=== PATIENT | female | born 1955 | race Caucasian/White ===

== ENCOUNTER 2023-07-28 15:41 | Emergency (ER) | payer MEDICARE, OTHER ==
[2023-07-28] MEDS ORDERED: LIDOCAINE 5% PATCH TOPICAL STA (19:11)
[2023-07-28] MEDS ORDERED: HYDROmorphone 1 MG/ML 1 ML SYRINGE IM STA (19:11)
--- NOTE | 2023-07-28 19:13 | ED ---
Back Pain HPI - General Chief Complaint: Back Pain/Injury Stated Complaint: left hip/leg pain Time Seen by Provider: 07/28/23 18:43 Source: patient, RN notes reviewed, old records reviewed Limitations: no limitations - History of Present Illness Initial Comments: This is a 67-year-old female presented with chronic back pain she has known history of lung back pain with prior rhizotomy which is help with the back pain. Patient did just recently moved to the area and his been had a difficult time with pain management and treating her pain. MD Complaint: back pain -: month(s) Similar Symptoms Previously: Yes Place: home Radiation: none Severity: severe Severity scale (1-10): 8 Quality: sharp Consistency: constant Improves With: none Worsens With: none Associated Symptoms: denies other symptoms Treatments Prior to Arrival: other (0) - Related Data Allergies Allergy/AdvReac Type Severity Reaction Status Date / Time cefaclor [From Ceclor] Allergy Unknown Verified 07/28/23 15:55 Sulfa (Sulfonamide Allergy Unknown Verified 07/28/23 15:55 Antibiotics) Review of Systems ROS Statement: Those systems with pertinent positive or pertinent negative responses have been documented in the HPI. ROS Other: All systems not noted in ROS Statement are negative. Past Medical History Past Medical History: Hyperlipidemia, Hypertension History of Any Multi-Drug Resistant Organisms: None Reported Past Surgical History: Breast Surgery, Coronary Bypass/CABG, Hysterectomy Past Psychological History: No Psychological Hx Reported Smoking Status: Never smoker Past Alcohol Use History: None Reported Past Drug Use History: None Reported General Exam - General Exam Comments Initial Comments: No focal neurological deficits Limitations: no limitations General appearance: alert, in no apparent distress Head exam: Present: atraumatic, normocephalic, normal inspection Eye exam: Present: normal appearance, PERRL, EOMI. Absent: scleral icterus, conjunctival injection, periorbital swelling ENT exam: Present: normal exam, mucous membranes moist Neck exam: Present: normal inspection. Absent: tenderness, meningismus, lymphadenopathy Respiratory exam: Present: normal lung sounds bilaterally. Absent: respiratory distress, wheezes, rales, rhonchi, stridor Cardiovascular Exam: Present: regular rate, normal rhythm, normal heart sounds. Absent: systolic murmur, diastolic murmur, rubs, gallop, clicks GI/Abdominal exam: Present: soft, normal bowel sounds. Absent: distended, tenderness, guarding, rebound, rigid Extremities exam: Present: normal inspection, full ROM, normal capillary refill. Absent: tenderness, pedal edema, joint swelling, calf tenderness Back exam: Present: normal inspection Neurological exam: Present: alert, oriented X3, CN II-XII intact Psychiatric exam: Present: normal affect, normal mood Skin exam: Present: warm, dry, intact, normal color. Absent: rash Course Vital Signs 07/28/23 07/28/23 15:51 20:03 Temperature 98 F 98.9 F Pulse Rate 64 68 Respiratory 16 18 Rate Blood Pressure 140/84 135/83 O2 Sat by Pulse 96 99 Oximetry - Reevaluation(s) Reevaluation #1: 07/28/23 19:12 Medical records reviewed Reevaluation #2: 07/28/23 19:12 Patient symptoms improved Reevaluation #3: 07/28/23 19:12 Patient informed results questions answered Reevaluation #4: 07/28/23 19:12 Was pt. sent in by a medical professional or institution (Dr. PA, MUMPS DEVELOPER, urgent care, hospital, or fpc...) When possible be specific @ -no Did you speak to anyone other than the patient for history (EMS, parent, family, police, friend...)? What history was obtained from this source @ -no Did you review nursing and triage notes (agree or disagree)? Why? @ -agree Are old charts reviewed (outside hosp., previous admission, EMS record, old EKG, old radiological studies, urgent care reports/EKG's, fpc records)? Report findings @ -yes Differential Diagnosis (chest pain, altered mental status, abdominal pain women, abdominal pain men, vaginal bleeding, weakness, fever, dyspnea, syncope, headache, dizziness, GI bleed, back pain, seizure, CVA, palpatations, mental health, musculoskeletal)? @ -prior EKG interpreted by me (3pts min.). @ -no X-rays interpreted by me (1pt min.). @ -no CT interpreted by me (1pt min.). @ -no U/S interpreted by me (1pt. min.). @ -no What testing was considered but not performed or refused? (CT, X-rays, U/S, labs)? Why? @ -none What meds were considered but not given or refused? Why? @ -none Did you discuss the management of the patient with other professionals (professionals i.e. , PA, MUMPS DEVELOPER, lab, RT, psych nurse, social work case manager, puppet engineer, teacher, credit officer, case checker)? Give summary @ -no Was smoking cessation discussed for >3mins.? @ -no Was critical care preformed (if so, how long)? @ -no Were there social determinants of health that impacted care today? How? (Homelessness, low income, unemployed, alcoholism, drug addiction, transportation, low edu. Level, literacy, decrease access to med. care, senior care, rehab)? @ -none Was there de-escalation of care discussed even if they declined (Discuss DNR or withdrawal of care, Hospice)? DNR status @ -no What co-morbidities impacted this encounter? (DM, HTN, Smoking, COPD, CAD, Cancer, CVA, ARF, Chemo, Hep., AIDS, mental health diagnosis, sleep apnea, morbid obesity)? @ -none Was patient admitted / discharged? Hospital course, mention meds given and route, prescriptions, significant lab abnormalities, going to OR and other pertinent info. @ - 67 female to the emergency department for evaluation of acute on chronic back pain. Patient has pain control here in the ER now requiring anything also she has follow-up for surgery on her back and is able anyway with no neurological complaints. Patient can be discharged home Discharge Undiagnosed new problem with uncertain prognosis? @ -no Drug Therapy requiring intensive monitoring for toxicity (Heparin, Nitro, Insulin, Cardizem)? @ -no Were any procedures done? @ -no Diagnosis/symptom? @ -Chronic back pain Acute, or Chronic, or Acute on Chronic? @ -Acute Uncomplicated (without systemic symptoms) or Complicated (systemic symptoms)? @ -Complicated Side effects of treatment? @ -no Exacerbation, Progression, or Severe Exacerbation? @ -exacerbation Poses a threat to life or bodily function? How? (Chest pain, [place], NH, pneumonia, PE, COPD, DKA, ARF, appy, cholecystitis, CVA, Diverticulitis, Homicidal, Suicidal, threat to staff... and all critical care pts) @ -yes Reevaluation #5: 07/28/23 19:13 Differential Back Pain: Strain, zoster, cauda equina syndrome, epidural abscess, vertebral osteomyelitis, discitis, fracture, subluxation, disc herniation, DJD, spinal stenosis, dissection, AAA, pancreatitis, peptic ulcer disease, pyelonephritis, kidney stone, this is not meant to be an all-inclusive list. Medical Decision Making - Medical Decision Making 67 female to the emergency department for evaluation of acute on chronic back pain. Patient has pain control here in the ER now requiring anything also she has follow-up for surgery on her back and is able anyway with no neurological complaints. Patient can be discharged home Disposition Clinical Impression: Lumbar radiculopathy, Mid back pain, Mechanical back pain, Chronic back pain Disposition: HOME SELF-CARE Condition: Good Instructions (If sedation given, give patient instructions): Acute Low Back Pain (ED) Is patient prescribed a controlled substance at d/c from ED?: No Referrals: Erwin Rowland MD [Primary Care Provider] - 1-2 days Time of Disposition: 19:15
[2023-07-28 20:06] VITALS: BP 135/83; PULSE 68; RESP 18; TEMP 98.9
== END 2023-07-28 20:19 | disposition home or self-care (01) ==
LOC: EC 15:41
DX: G89.29 Other chronic pain (principal); M54.16 Radiculopathy, lumbar region; I10 Essential (primary) hypertension; Z88.2 Allergy status to sulfonamides; Z88.8 Allergy status to other drugs, medicaments and biological substances; Z95.1 Presence of aortocoronary bypass graft
CPT/HCPCS: 99283; 96372; J1170

== ENCOUNTER → 2023-08-14 | Outpatient (CLI) | payer MEDICARE, OTHER ==
[2023-08-14 14:02] VITALS: BP 149/86; PULSE 101; RESP 15; TEMP 98.5
--- NOTE | 2023-08-14 14:43 | P.PAINPG ---
PQRS Measure Charge Sheet Comment: HISTORY OF PRESENT ILLNESS: A 67 yr old female as a referral from Dr Erwin Rowland presents today w severe and chronic LBP x 3 mo secondary to DDD, spondylosis and facet arthropathy without myelopathy for evaluation. Pt brought in documentation from [facility] where she had a L RFA of the L3-L4, L4-L5, L5-S1 in Aug 2021 where she experienced 90% pain relief x 1.5 yrs s/p procedure. Pt states pain level is provoked at 8 /10 in intensity, constant, localized in the L lower lumbar spine, predominantly axial, stabbing in character w occasional shooting pain towards the L groin and LLE. Pain is provoked by standing/ walking for periods of 15 min or more. Pain is alleviated by L RFA L2-L5, medications ([place] 10/325mg TID, MS ER 30mg BID), topical, PT x 4 wks in 2021, physician guided home exercises 3-4 times weekly x past 11 mo til present, use of a cane for ambulatory assistance, repositioning and rest. Oswestry axial pain score at 32. PMH: OA, Hyperlipidemia, HTN PSH: Breast Surgery, Coronary Bypass/CABG, Hysterectomy, L RFA L2-L5 (Aug 2021) SH: Negative x3 FH: Non contributory All: See list Meds: See list REVIEW OF ORGAN SYSTEMS: CONSTITUTIONAL: No fevers or chills. No recent weight loss. NEUROLOGICAL: + numbness and tingling along the distal ex tremities. No seizure disorders or headaches. MUSCULOSKELETAL: + pain PSYCHIATRIC: Denies current depression or suicidal thoughts. Physical Examinations : Constitutional : Cooperative , not in acute distress . Neurologic : Cranial nerve II to XII intact. No focal neurological deficits. Psychiatric : alert & oriented x 3. Matching mood & appropriate affect. Judgment & insight intact. Musculoskeletal : Cervical Spine Motor strength in the deltoid and biceps: Normal right side. Normal Left side Motor strength biceps and the wrist extensors: Normal right side . Normal left side Motor strength in the triceps muscle: Normal right side. Normal left side Deep tendon reflexes: Normal at the biceps. Normal at Brachioradialis. Normal at triceps Vertebral body tenderness to deep palpation over Cervical facet loading test: positive bilaterally Spurling test: positive bilaterally Neck distraction test: positive bilaterally Phillip sign: positive bilaterally Lumbar spine Motor strength lower extremities ,thigh and legs 5/5 Right side , 5/5 Left side Deep tendon reflexes : Normal Knee Jerk. Normal Ankle Jerk Vertebral body tenderness over Jimneez Test positive Lumbar facet Loading Test: positive Right / positive Left over L4-L5, L5-S1 Range of motion of the lumbar spine Flexion 30 degrees, extension 10 degrees Straight Leg Raise test: Left/ Right positive at degree Sang test: positive right / positive left. Severe tenderness over the Sacroiliac joint on the Right / Left sides Gaenslen test: positive bilaterally Seated flexion test: positive james aterally. Sacral spine : Severe tenderness over the Sacroiliac joint: right side / left side Range of motion: Flexion of the lumbar spine <60 degrees Range of motion: Extension of the lumbar spine <20 degrees Gaenslen's Test positive Sang test: positive right side / left side Thigh Thrust Test Sacral Thrust Test Imaging: None on file Assessment/ Plan : Lumbar DDD Recommendation of x ray lumbar spine M51.36. RTC in 1-2 wks for a re evaluation. All questions answered. I have spent greater than 30 minutes on patient care today. Dr Gonzales was available by phone for the evaluation of this patient. The time was used to review the medical records including relevant urine studies and Prescription history (MAPs), review of the available imaging, evaluation and examination of the patient, coordination of care with the medical staff and if applicable referring physicians, as well as creation of the medical record - Pain Location Bilateral Lower Back Non-Pharmacological Interventions: Heat, Inactivity, Position/Reposition, Sitting Pharmacological Interventions: Epidural, Scheduled Medication Controlled Substance Measures - Controlled Substance Measures Is patient prescribed a controlled substance at discharge?: No
== END ==
LOC: PNWHC3 13:08
PROVIDERS: ATTEND Specialist
DX: M51.37 Other intervertebral disc degeneration, lumbosacral region (principal); M79.7 Fibromyalgia; J45.40 Moderate persistent asthma, uncomplicated; I10 Essential (primary) hypertension; E78.1 Pure hyperglyceridemia; I25.10 Atherosclerotic heart disease of native coronary artery without angina pectoris; M19.90 Unspecified osteoarthritis, unspecified site; E78.5 Hyperlipidemia, unspecified; Z88.8 Allergy status to other drugs, medicaments and biological substances; Z88.2 Allergy status to sulfonamides
CPT/HCPCS: 99211

== ENCOUNTER → 2023-08-14 | Outpatient (CLI) | payer MEDICARE, OTHER ==
--- NOTE | 2023-08-14 15:24 | XR ---
EXAMINATION TYPE: XR lumbar spine 2 or 3V DATE OF EXAM: 08/14/2023 CLINICAL HISTORY: pain TECHNIQUE: Three views of the lumbar spine are submitted. COMPARISON: None. FINDINGS: There are 5 lumbar type vertebral bodies identified. The lumbar spine shows satisfactory alignment w ithout evidence of acute fracture or dislocation. Vertebral body heights are within normal limits. Degenerative disc space narrowing. Grade 1 anterolisthesis L4 and L5 measuring 4 mm. The overlying s oft tissue appears unremarkable. IMPRESSION: No acute fracture or dislocation is seen in the lumbar spine. ICD 10 NO FRACTURE, INITIAL EVALUATION
== END | disposition home or self-care (01) ==
LOC: RADXRMAIN 14:14
PROVIDERS: ATTEND Physician Assistant Medical
DX: M51.36 Other intervertebral disc degeneration, lumbar region (principal)
CPT/HCPCS: 72100

== ENCOUNTER → 2023-08-22 | Outpatient (CLI) | payer MEDICARE, OTHER ==
--- NOTE | 2023-08-27 09:39 | MR ---
EXAMINATION TYPE: MR lumbar spine wo con DATE OF EXAM: 08/22/2023 COMPARISON: HISTORY: Low back pain into left side x4 months TECHNIQUE: Multiplanar, multisequence images of the lumbar spine were acquired without IV contrast. L1-L2: Normal disc appearance without desiccation. No herniation, protrusion or disc bulging. No ca nal stenosis is present. Foramina are patent bilaterally. L2-L3: Normal disc appearance without desiccation. No herniation, protrusion or disc bulging. No ca nal stenosis is present. Foramina are patent bilaterally. Grade 1 anterolisthesis L2 on L3 measuring 2 mm. Facet joint arthropathy. L3-L4: Mild disc desiccation. No significant disc bulge or herniation. No central stenosis. Foramina are patent bilaterally. L4-L5: Grade 1 anterolisthesis L4 and L5 measuring 6 mm. Posterior disc bulge. Left lateral recess st enosis and left foraminal encroachment. No central stenosis appreciated or disc herniation. L5-S1: Normal disc appearance without desiccation. No herniation, protrusion or disc bulging. No ca nal stenosis is present. Foramina are patent bilaterally. Lumbar segments are intact. No paraspinal masses are identified. Conus medullaris has a normal appe arance. IMPRESSION: 1. Grade 1 anterolisthesis L4-5 and L2-3 as discussed. 2. At L4-5 there is left lateral recess stenosis and left foraminal encroachment.
== END | disposition home or self-care (01) ==
LOC: RADMRIMAIN 16:58
PROVIDERS: ATTEND Specialist
DX: M51.36 Other intervertebral disc degeneration, lumbar region (principal); M43.16 Spondylolisthesis, lumbar region; M48.061 Spinal stenosis, lumbar region without neurogenic claudication
CPT/HCPCS: 72148

== ENCOUNTER → 2023-09-02 | Outpatient (CLI) | payer MEDICARE, OTHER ==
--- NOTE | 2023-09-02 14:19 | P.PAINPG ---
PQRS Measure Charge Sheet Comment: HISTORY OF PRESENT ILLNESS: A 67 yr old female presents today w severe and chronic LBP x 5 mo secondary to DDD, spondylosis and facet arthropathy without myelopathy for evaluation. Pt has documentation from [facility] where she had a L RFA of the L3-L4, L4-L5, L5-S1 in Aug 2021 where she experienced 90% pain relief x 1.5 yrs s/p procedure. Pt states pain level is provoked at 7-8 /10 in intensity, constant, localized in the L lower lumbar spine, predominantly axial, stabbing in character w occasional shooting pain towards the L groin and LLE. Pain is provoked by standing/ walking for periods of 15 min or more. Pain is alleviated by L RFA L2-L5, medications, topical, PT x 4 wks in 2021, physician guided home exercises 3-4 times weekly x past yr til present, use of a cane for ambulatory assistance, repositioning and rest. Oswestry axial pain score at 32. Interventional procedures include L RFA L2-L5 (Aug 2021) Medications include [place] 10/325mg #90, MS ER 30mg #60 REVIEW OF ORGAN SYSTEMS: CONSTITUTIONAL: No fevers or chills. No recent weight loss. NEUROLOGICAL: + numbness and tingling along the distal extremities. No seizure disorders or headaches. MUSCULOSKELETAL: + pain PSYCHIATRIC: Denies current depression or suicidal thoughts. Physical Examinations : Constitutional : Cooperative , not in acute distress . Neurologic : Cranial nerve II to XII intact. No focal neurological deficits. Psychiatric : alert & oriented x 3. Matching mood & appropriate affect. Judgment & insight intact. Musculoskeletal : Cervical Spine Motor strength in the deltoid and biceps: Normal right side. Normal Left side Motor strength biceps and the wrist extensors: Normal right side . Normal left side Motor strength in the triceps muscle: Normal right side. Normal left side Deep tendon reflexes: Normal at the biceps. Normal at Brachioradialis. Normal at triceps Vertebral body tenderness to deep palpation over Cervical facet loading test: positive bilaterally Spurling test: positive bilaterally Neck distraction test: positive bilaterally Phillip sign: positive bilaterally Lumbar spine Motor strength lower extremities ,thigh and legs 5/5 Right side , 5/5 Left side Deep tendon reflexes : Normal Knee Jerk. Normal Ankle Jerk Vertebral body tenderness over Jimenez Test positive Lumbar facet Loading Test: positive Right / positive Left over L4-L5, L5-S1 Range of motion of the lumbar spine Flexion 30 degrees, extension 10 degrees Straight Leg Raise test: Left/ Right positive at degree Sang test: positive right / positive left. Severe tenderness over the Sacroiliac joint on the Right / Left sides Gaenslen test: positive bilaterally Seated flexion test: positive bilaterally. Sacral spine : Severe tenderness over the Sacroiliac joint: right side / left side Range of motion: Flexion of the lumbar spine <60 degrees Range of motion: Extension of the lumbar spine <20 degrees Gaenslen's Test positive Sang test: positive right side / left side Thigh Thrust Test Sacral Thrust Test Imaging: MRI noncontrast of the lumbar spine from 08/22/23 reviewed Assessment/ Plan : Lumbar DDD Recommendation of L RFA L3-L5. Pt exhibited substantial pain relief w prior RFA of the lumbar spine from Aug 2021. Awaiting medical clearance from from Dr Hobbs, Photographic Restorer, for Xarelto. All questions answered. I have spent greater than 30 minutes on patient care today. Dr Gonzales was available by phone for the evaluation of this patient. The time was used to review the medical records including relevant urine studies and Prescription history (MAPs), review of the available imaging, evaluation and examination of the patient, coordination of care with the medical staff and if applicable refer ring physicians, as well as creation of the medical record PQRS Narrative: Hx Alcohol Use (MH) No Home Medications: Ambulatory Orders methocarbamoL [Robaxin-750] 1,500 mg PO TID PRN #30 tab 07/24/23 predniSONE 50 mg PO DAILY 5 Days #5 tab 07/24/23 Controlled Substance Measures - Controlled Substance Measures Is patient prescribed a controlled substance at discharge?: No
[2023-09-02 14:39] VITALS: BP 179/99; PULSE 78; RESP 15; TEMP 98.5
== END ==
LOC: PNWHC3 13:34
PROVIDERS: ATTEND Specialist
DX: M51.36 Other intervertebral disc degeneration, lumbar region (principal); Z88.2 Allergy status to sulfonamides; Z88.1 Allergy status to other antibiotic agents; Z91.048 Other nonmedicinal substance allergy status
CPT/HCPCS: 99211

== ENCOUNTER 2023-09-12 11:48 | Day surgery (SDC) | payer MEDICARE, OTHER ==
[2023-09-12] MEDS ORDERED: LIDOCAINE 1% (10MG/ML) FOR IV START INTRADERMA PRN (12:04)
[2023-09-12] MEDS ORDERED: LACTATED RINGERS 1,000 ML IV SCH ×2 (12:04)
[2023-09-12] MEDS ORDERED: LIDOCAINE 1% (10MG/ML) FOR IV START INTRADERMA ONE (12:38)
[2023-09-12 12:45] VITALS: RESP 16; TEMP 97.3
[2023-09-12] MEDS ORDERED: fentaNYL (PF) 50 MCG/ML 2 ML AMP ONE (13:17)
[2023-09-12] MEDS ORDERED: MIDAZOLAM 2 MG/2 ML VIAL ONE (13:17)
[2023-09-12] MEDS ORDERED: ROPIVACAINE 5MG/ML 20ML VIAL ONE (13:21)
[2023-09-12] MEDS ORDERED: LACTATED RINGERS 1,000 ML IV ONE (13:47)
--- NOTE | 2023-09-12 13:48 | P.PCN ---
Description of Procedure: Preprocedure diagnosis. 1. Lumbar spondylosis with facet joint arthropathy without myelopathy. 2. Lumbar degenerative disc disease. Procedure diagnosis. 1. Lumbar spondylosis with facet joint arthropathy without myelopathy. Space 2. Lumbar degenerative disc disease. Procedure.left radiofrequency thermocoagulation L3, L4 and L5 medial branch, with fluoroscopic guidance (fluoroscopy images are available in the radiology department) (to Denervate the facet joint at left L4 5 and L5-S1 levels) Anesthesia. Monitored anesthesia care as per anesthesia department, . EBL minimal. Procedure indication. The patient with low back pain secondary to lumbar facet arthropathy who he had more than 50% relief of her pain with previous diagnostic lumbar medial branch block with local anesthetics. Procedure description/technique. The patient was seen and identified in the preoperative area. Risks: Benefits, complications, including but not limited to risk of infection, bleeding, ALLERGIC reaction to the medications and no complete pain relief and alternatives were discussed with the patient, the patient admitted to proceed with the procedure and signed the consent. IV was started, vital signs remained stable throughout the procedure. Patient was taken to the OR and timeout was completed. The patient was placed in prone position on the procedure table. The lumbar area was prepped and draped in the usual sterile fashion. Vital signs were closely monitored during the procedure. IV sedation was used it during the procedure to decrease patient's anxiety. Using AP and then oblique fluoroscopy, the "eye of the [place] dog" corresponding to the connection between the superior articular process and transverse process of left L4 and L5 and junction of superior articular process with the left ala of the sacrum was identified, marked and localized with 1% lidocaine. Space subsequently, a 18-gauge 100 mm radiofrequency cannula with a 10 mm active tip was advanced and guided by fluoroscopy to each of the" eyes of the [place] dog" at left L4, L5 and ala of the sacrum. Each site then underwent sensory testing with 50 Hz and 0-1 V and motor testing at 2.5 Hz and 0-3 V with local stimulation but no radicular symptoms down the leg. Thereafter each sites underwent radiofrequency thermocoagulation at 80C for 90 seconds after injecting 1 mL of preservative-free 0.5% ropivacaine. Repeat radiofrequency ablation was done at each points after rotating the needle 180 with same setting. RF needles were taken out. At the end of the procedure the skin was cleansed and Band-Aids were applied. Disposition patient tolerated the procedure well. No complication. She was placed in supine position and transferred to the recovery area in stable condition for observation and was discharged home from recovery room after meeting discharge criteria. Discharge instructions given to the patient by the staff. The patient were examined prior to discharge the patient will schedule a follow-up in the clinic in 2-4 weeks.
--- NOTE | 2023-09-12 14:10 | FL ---
EXAMINATION TYPE: FL guided pain mgmt statistic Intraoperative/procedural fluoroscopic services were provided. Total fluoroscopy time is 33.8 seconds with a total of 3 submitted images to PACS. Please s ee the operative/procedural note for further details. DAP: [id number] [id number]
[2023-09-12 14:47] VITALS: BP 152/64; PULSE 74
== END 2023-09-12 14:20 | disposition home or self-care (01) ==
LOC: ORPAIN 11:48
PROVIDERS: ATTEND Pain Medicine Interventional Pain Medicine
DX: M51.36 Other intervertebral disc degeneration, lumbar region (principal); M47.816 Spondylosis without myelopathy or radiculopathy, lumbar region; I25.10 Atherosclerotic heart disease of native coronary artery without angina pectoris; I10 Essential (primary) hypertension; I48.91 Unspecified atrial fibrillation; E78.5 Hyperlipidemia, unspecified; Z86.711 Personal history of pulmonary embolism; Z79.01 Long term (current) use of anticoagulants; Z95.1 Presence of aortocoronary bypass graft; Z88.2 Allergy status to sulfonamides; Z88.1 Allergy status to other antibiotic agents
CPT/HCPCS: 64635; 64636; J2250; J3010; J2795

== ENCOUNTER → 2023-10-07 | Outpatient (CLI) | payer MEDICARE, OTHER ==
--- NOTE | 2023-10-07 13:00 | P.PAINPG ---
PQRS Measure Charge Sheet Comment: HISTORY OF PRESENT ILLNESS: A 68 yr old female presents today w severe and chronic LBP x 5 mo secondary to DDD, spondylosis and facet arthropathy without myelopathy for evaluation s/p L RFA L3-L5. Pt states she experienced 70 % pain relief s/p procedure. Pt states pain level is provoked at 9 /10 in intensity, constant, localized in the L tailbone, predominantly axial, stabbing in character w occasional shooting pain towards the L groin. Pain is provoked by standing/ walking for periods of 15 min or more. Pain is alleviated by L RFA L2-L5, medications, topical, PT x 4 wks in 2021, physician guided home exercises 3-4 times weekly x past yr til present, use of a cane for ambulatory assistance, repositioning and rest. Oswestry axial pain score at 31. Interventional procedures include L RFA L2-L5 (Aug 2021), L RFA L3-L5 (Aug 2023) Medications include Jefferson 10/325mg #90, MS ER 30mg #60 REVIEW OF ORGAN SYSTEMS: CONSTITUTIONAL: No fevers or chills. No recent weight loss. NEUROLOGICAL: + numbness and tingling along the distal extremities. No seizure disorders or headaches. MUSCULOSKELETAL: + pain PSYCHIATRIC: Denies current depression or suicidal thoughts. Physical Examinations : Constitutional : Cooperative , not in acute distress . Neurologic : Cranial nerve II to XII intact. No focal neurological deficits. Psychiatric : alert & oriented x 3. Matching mood & appropriate affect. Judgment & insight intact. Musculoskeletal : Cervical Spine Motor strength in the deltoid and biceps: Normal right side. Normal Left side Motor strength biceps and the wrist extensors: Normal right side . Normal left side Motor strength in the triceps muscle: Normal right side. Normal left side Deep tendon reflexes: Normal at the biceps. Normal at Brachioradialis. Normal at triceps Vertebral body tenderness to deep palpation over Cervical facet loading test: positive bilaterally Spurling test: positive bilaterally Neck distraction test: positive bilaterally Phillip sign: positive bilaterally Lumbar spine Motor strength lower extremities ,thigh and legs 5/5 Right side , 5/5 Left side Deep tendon reflexes : Normal Knee Jerk. Normal Ankle Jerk Vertebral body tenderness over Jimenez Test positive Lumbar facet Loading Test: positive Right / positive Left over L5-S1 Range of motion of the lumbar spine Flexion 30 degrees, extension 10 degrees Straight Leg Raise test: Left/ Right positive at degree Sang test: positive right / positive left. Severe tenderness over the Sacroiliac joint on the Right / Left sides Gaenslen test: positive bilaterally Seated flexion test: positive bilaterally. Sacral spine : Severe tenderness over the Sacroiliac joint: right side / left side Range of motion: Flexion of the lumbar spine <60 degrees Range of motion: Extension of the lumbar spine <20 degrees Gaenslen's Test positive Sang test: positive right side / left side Thigh Thrust Test Sacral Thrust Test Imaging: MRI noncontrast of the lumbar spine from 08/22/23 reviewed Assessment/ Plan : Lumbar DDD Recommendation of L Iliolumbar Ligament injection. May need a seires of injections for optimal pain relief. Risks, benefits of procedure discussed and pt verbalized understanding. Protocol for discontinuation/ continuation of medications ramandeep procedure discussed. Lidocaine 5% topical BID prn pain Disp : 1 tube w 1 RF. Use, side effects, adverse reactions and safe storage discussed. All questions answered. I have spent greater than 30 minutes on patient care today. Dr Gonzales was available by phone for the evaluation of this patient. The time was used to review the medical records including relevant urine studies and Prescription history (MAPs), review of the available imaging, evaluation and examination of the patient, coordination of care with the medical staff and if applicable referring physicians, as well as creation of the medical record PQRS Narrative: Hx Alcohol Use (MH) No Home Medications: Ambulatory Orders Acyclovir [Zovirax] 400 mg PO QAM PRN 09/10/23 Amiodarone [Cordarone] 200 mg PO QAM 09/10/23 Aspirin [Adult Low Dose Aspirin EC] 81 mg PO QAM 09/10/23 Cyclobenzaprine [Flexeril] 5 mg PO BID PRN 09/10/23 Fenofibrate 145 mg PO AC-SUPPER 09/10/23 Fexofenadine HCl 180 mg PO QAM 09/10/23 Fluticasone Nasal [place] [Flonase Nasal [place]] 1 spray NASAL DAILY PRN 09/10/23 Gabapentin 600 mg PO TID 09/10/23 HYDROcodone/APAP 10-325MG [Jefferson 10-325] 1 tab PO TID 09/10/23 Levalbuterol Tartrate [Levalbuterol Tartrate 45 MCG Hfa] 15 gm INHALATION DAILY PRN 09/10/23 Losartan Potassium 25 mg PO QAM 09/10/23 Metoprolol Succinate [Metoprolol Succinate ER] 25 mg PO QAM 09/10/23 Morphine Sulfate [Ms Contin] 30 mg PO BID 09/10/23 Rivaroxaban [Xarelto] 10 mg PO AC-SUPPER 09/10/23 Rosuvastatin Calcium 40 mg PO HS 09/10/23 amLODIPine BESYLATE 2.5 mg PO QAM 09/10/23 traZODone HCL 100 mg PO HS 09/10/23 Lidocaine 5% Oint [Xylocaine 5% Oint] 1 applic TOPICAL BID 30 Days #50 gm 10/07/23 Controlled Substance Measures - Controlled Substance Measures Is patient prescribed a controlled substance at discharge?: No
[2023-10-07 13:04] VITALS: BP 132/82; PULSE 79; RESP 15; TEMP 98.5
== END ==
LOC: PNWHC3 12:32
PROVIDERS: ATTEND Specialist
DX: M51.37 Other intervertebral disc degeneration, lumbosacral region (principal); Z79.82 Long term (current) use of aspirin; Z88.1 Allergy status to other antibiotic agents; Z88.2 Allergy status to sulfonamides; Z91.048 Other nonmedicinal substance allergy status
CPT/HCPCS: 99211

== ENCOUNTER 2023-10-16 10:04 | Day surgery (SDC) | payer MEDICARE, OTHER ==
[~2023-10-16 10:04] MED LIST: LACTATED RINGERS 1,000 ML IV SCH
[2023-10-16 10:58] VITALS: TEMP 98
[2023-10-16] MEDS ORDERED: methylPREDNISolone ACETATE 40 MG/ML 1 ML VIAL ONE (11:08)
[2023-10-16] MEDS ORDERED: ROPIVACAINE 5MG/ML 20ML VIAL ONE (11:08)
--- NOTE | 2023-10-16 11:14 | P.PCN ---
Date of Procedure: 10/16/23 Procedure(s) Performed: Procedure= Left iliolumbar ligament steroid injection under fluoroscopy guidance (fluoroscopy image stored on file in the radiology Department ) Preoperative diagnosis= 1- Left iliolumbar ligament neuralgia 2-lumbar degenerative disc disease 3-lumbar spondylosis with facet arthropathy Postoperative diagnosis=Same as preop Diagnosis . Complication = none Condition= stable Anesthesia= local anesthesia with ropivacaine 0.5% 2 ml only Indication for the procedure= patient complaining of low back pain , examination was positive for severe tenderness over the left iliolumbar ligament , and patient diagnosed with iliolumbar ligament neuralgia, for this reason he was good candidate for iliolumbar ligament steroid injection. Description of the procedure= procedure risk and benefits discussed with the patient, including but not limited, risk of infection and bleeding, and ALLERGIC reaction to the medication and not complete pain relief and patient agreed with the preceding patient taken to the operating room, placed in prone position or standard monitors applied to the patient then after induction of anesthesia back prepped with chlorhexidine 3 times , Then under strict sterile technique, first I did the left side the which was identified under fluoroscopy guidance been local infiltration of the skin and subcu interstitial with lidocaine 1% then 22-gauge [place] Needle advanced slowly under fluoroscopy and placed in the middle of the distance between the L5 transver process and the sacral ala ,needle placement confirmed with AP and oblique and lateral view, and after appropriate needle placement confirmed and after negative aspiration, or heme , then Ropivacaine 0.5% 3 mL, and 40 mg of Depo-Medrol mixed together and injected after negative aspiration patient tolerated the procedure well without any complication.
[2023-10-16 11:25] VITALS: BP 158/78; PULSE 58; RESP 18
--- NOTE | 2023-10-16 11:44 | FL ---
EXAMINATION TYPE: FL guided pain mgmt statistic DATE OF EXAM: 10/16/2023 CLINICAL HISTORY: Low back pain. TECHNIQUE: Fluoroscopy. COMPARISON: None. FINDINGS: Fluoroscopic guidance was provided during pain relief procedure performed by Dr. Gonzales . A total of 5.7 seconds of fluoroscopic time was utilized during the procedure and two spot images are acquired. Images acquired shows needle localization at the lumbosacral junction. IMPRESSION: As Above. TOTAL DAP = 0.26841 mGy x m2.
== END 2023-10-16 11:37 | disposition home or self-care (01) ==
LOC: ORPAIN 10:04
PROVIDERS: ATTEND Specialist
DX: M53.3 Sacrococcygeal disorders, not elsewhere classified (principal); M51.36 Other intervertebral disc degeneration, lumbar region; M47.816 Spondylosis without myelopathy or radiculopathy, lumbar region; Z88.1 Allergy status to other antibiotic agents; Z88.2 Allergy status to sulfonamides; Z79.01 Long term (current) use of anticoagulants; Z79.82 Long term (current) use of aspirin
CPT/HCPCS: 20550; J1030; J2795

== ENCOUNTER 2023-10-28 14:17 | Emergency (ER) | payer MEDICARE, OTHER ==
--- NOTE | 2023-10-28 14:32 | ED ---
Psych HPI - General Source: patient, RN notes reviewed Mode of arrival: EMS Limitations: no limitations <Horacio Vigil - Last Filed: 10/28/23 14:25> <Janiya Bryan - Last Filed: 10/29/23 21:49> - General Chief Complaint: Psychiatric Symptoms Stated Complaint: Suicidal Time Seen by Provider: 10/28/23 14:25 - History of Present Illness Initial Comments: 68-year-old female presents emergency department via EMS chief complaint of depression, suicide lesion. Patient states she took 1-2 Linden, MS Contin yesterday. She states that she cut her arms, legs. She states she is unsure when her last tetanus was. Patient called 911 today for help. Patient states she is extremely depressed. (Horacio Vigil) 68-year-old female presents to the emergency department for a suicide attempt. Patient states that she took kitchen knives to both arms and legs last night around 10 PM. She states that following this she took 4 Linden 10 mg and 5 MS Contin. She states that this is an attempt to commit suicide. She is regretful of this. She reports worsening depression for the past 6 months. (Janiya Bryan) - Related Data Home Medications Medication Instructions Recorded Confirmed Acyclovir [Zovirax] 400 mg PO DAILY PRN 09/10/23 10/28/23 Amiodarone [Cordarone] 200 mg PO DAILY 09/10/23 10/28/23 Aspirin [Adult Low Dose Aspirin EC] 81 mg PO DAILY 09/10/23 10/28/23 Cyclobenzaprine [Flexeril] 5 mg PO BID PRN 09/10/23 10/28/23 Fexofenadine HCl 180 mg PO DAILY 09/10/23 10/28/23 Fluticasone Nasal Desha [Flonase 1 spr NASAL DAILY PRN 09/10/23 10/28/23 Nasal Desha] Gabapentin 600 mg PO TID 09/10/23 10/28/23 Levalbuterol Tartrate 1 applic INHALATION DAILY PRN 09/10/23 10/28/23 [Levalbuterol Tartrate 45 MCG Hfa] Metoprolol Succinate [Metoprolol 25 mg PO DAILY 09/10/23 10/28/23 Succinate ER] Morphine Sulfate [Ms Contin] 30 mg PO BID 09/10/23 10/28/23 Rivaroxaban [Xarelto] 10 mg PO AC-SUPPER 09/10/23 10/28/23 Rosuvastatin Calcium 40 mg PO HS 09/10/23 10/28/23 amLODIPine BESYLATE 2.5 mg PO DAILY 09/10/23 10/28/23 traZODone HCL 100 mg PO HS 09/10/23 10/28/23 HYDROcodone/APAP 5-325MG [Linden 2 tab PO Q8H PRN 10/13/23 10/28/23 5-325] Lidocaine 5% Oint [Xylocaine 5% 1 applic TOPICAL BID PRN 10/13/23 10/28/23 Oint] Ondansetron [Zofran] 4 mg PO Q8H PRN 10/13/23 10/28/23 buPROPion SR [Wellbutrin SR] 150 mg PO BID 10/13/23 10/28/23 Fenofibrate Nanocrystallized 145 mg PO AC-SUPPER 10/28/23 10/28/23 [Fenofibrate] Losartan [Cozaar] 25 mg PO DAILY 10/28/23 10/28/23 Allergies Allergy/AdvReac Type Severity Reaction Status Date / Time cefaclor [From Ceclor] Allergy Severe Anaphylaxis Verified 10/28/23 20:31 Sulfa (Sulfonamide Allergy Severe Anaphylaxis Verified 10/28/23 20:31 Antibiotics) adhesive tape Allergy Rash/Hives Verified 10/28/23 20:31 Review of Systems ROS Other: All systems not noted in ROS Statement are negative. <Horacio Vigil - Last Filed: 10/28/23 14:25> ROS Other: All systems not noted in ROS Statement are negative. <Janiya Bryan - Last Filed: 10/29/23 21:49> ROS Statement: Those systems with pertinent positive or pertinent negative responses have been documented in the HPI. Past Medical History Past Medical History: Asthma, Coronary Artery Disease (CAD), Chest Pain / Angina, Hyperlipidemia, Hypertension, Pulmonary Embolus (PE), Renal Disease Additional Past Medical History / Comment(s): 2018 bilateral lung PEs, CKD stage III History of Any Multi-Drug Resistant Organisms: None Reported Past Surgical History: Breast Surgery, Coronary Bypass/CABG, Hysterectomy, Tonsillectomy Additional Past Surgical History / Comment(s): Bilateral breast reduction, 2 vessel CABG 2022. RK BOTH EYES. Past Anesthesia/Blood Transfusion Reactions: Postoperative Nausea & Vomiting (PONV) Past Psychological History: No Psychological Hx Reported Smoking Status: Never smoker Past Alcohol Use History: None Reported Past Drug Use History: None Reported - Past Family History Father Family Medical History: Cancer Mother Family Medical History: Myocardial Infarction (SD) Additional Family Medical History / Comment(s): of SD at the age of 73yrs. <Horacio Vigil - Last Filed: 10/28/23 14:25> General Exam Limitations: no limitations <Horacio Vigil - Last Filed: 10/28/23 14:25> General appearance: appears intoxicated Head exam: Present: atraumatic, normocephalic, normal inspection Pupils: Present: miosis ENT exam: Present: mucous membranes dry Neck exam: Present: normal inspection. Absent: tenderness, meningismus, lymphadenopathy Respiratory exam: Present: normal lung sounds bilaterally. Absent: respiratory distress, wheezes, rales, rhonchi, stridor Cardiovascular Exam: Present: regular rate, normal rhythm, normal heart sounds. Absent: systolic murmur, diastolic murmur, rubs, gallop, clicks Extremities exam: Present: other Skin exam: Present: warm, dry, other (Multiple superficial abrasions to james ateral arms and inner thighs, centimeter laceration to the left forearm, 2 cm lacerations to bilateral inner thighs). Absent: intact <Janiya Bryan - Last Filed: 10/29/23 21:49> - General Exam Comments Initial Comments: Visual Physical Exam Vital signs reviewed General: Well-appearing, nontoxic, no acute distress. Head: Normocephalic, atraumatic Eyes: PERRLA, EOMI ENT: Airway patent Chest: Nonlabored breathing Skin: No visual rash, normal skin tone Neuro: Alert and oriented 3 Musculoskeletal: No gross abnormalities (Horacio Vigil) Patient reevaluated: in no apparent respiratory distress Pupils miotic Patient alert and oriented x 3. Cardiac regular rate and rhythm Lungs clear to auscultation bilaterally Multiple abrasions to bilateral forearms and inner thighs. Laceration to left anterior forearm about 4 cm, lacerations to bilateral inner thighs about 2 cm each. (Janiya Bryan) Course Vital Signs 10/28/23 10/28/23 10/28/23 14:19 14:36 15:37 Temperature 98.1 F Pulse Rate 64 Respiratory 16 12 Rate Blood Pressure 157/90 O2 Sat by Pulse 94 L 97 Oximetry 10/28/23 10/28/23 10/28/23 18:51 21:04 23:57 Temperature 98.1 F Pulse Rate 67 79 87 Respiratory 18 12 12 Rate Blood Pressure 151/92 156/107 180/124 O2 Sat by Pulse 97 96 94 L Oximetry 10/29/23 10/29/23 10/29/23 01:08 03:37 04:00 Temperature Pulse Rate 87 93 87 Respiratory 15 17 12 Rate Blood Pressure 164/111 174/113 167/105 O2 Sat by Pulse 94 L 95 96 Oximetry 10/29/23 10/29/23 10/29/23 05:00 06:05 07:25 Temperature 98.5 F Pulse Rate 90 85 90 Respiratory 12 12 18 Rate Blood Pressure 173/110 179/108 209/138 O2 Sat by Pulse 95 96 96 Oximetry 10/29/23 10/29/23 10/29/23 07:35 08:50 09:33 Temperature Pulse Rate 95 65 Respiratory 20 18 18 Rate Blood Pressure 202/106 141/85 O2 Sat by Pulse 95 95 Oximetry 10/29/23 10/29/23 10/29/23 10:48 13:43 15:00 Temperature Pulse Rate 66 68 Respiratory 18 18 16 Rate Blood Pressure 157/78 148/68 O2 Sat by Pulse 96 96 Oximetry 10/29/23 10/29/23 10/29/23 16:00 16:29 18:40 Temperature Pulse Rate 75 75 72 Respiratory 20 18 18 Rate Blood Pressure 163/84 160/78 136/63 O2 Sat by Pulse 92 L 95 95 Oximetry 10/29/23 19:51 Temperature Pulse Rate 86 Respiratory 16 Rate Blood Pressure 146/86 O2 Sat by Pulse 94 L Oximetry Procedures - Laceration Laceration #1 Consent Obtained: verbal consent Indication: laceration Site: upper extremity Size (cm): 4 Description: linear Depth: simple, single layer Anesthetic Used: lidocaine 1% Anesthesia Technique: local infiltration Pre-repair: wound explored Type of Sutures: other Size of Sutures: 5-0 Number of Sutures: 6 Technique: simple, interrupted Patient Tolerated Procedure: well, no complications Laceration #2 Consent Obtained: verbal consent Indication: laceration Site: lower extremity (Left) Size (cm): 2 Description: linear Depth: simple, single layer Anesthetic Used: lidocaine 1% Anesthesia Technique: local infiltration Pre-repair: wound explored Type of Sutures: other Size of Sutures: 5-0 Number of Sutures: 3 Technique: simple, interrupted Patient Tolerated Procedure: well, no complications Laceration #3 Consent Obtained: verbal consent Indication: laceration Site: lower extremity (Right) Size (cm): 2 Description: linear Depth: simple, single layer Anesthetic Used: lidocaine 1% Anesthesia Technique: local infiltration Pre-repair: wound explored Type of Sutures: other Size of Sutures: 5-0 Number of Sutures: 4 Technique: simple, interrupted Patient Tolerated Procedure: well, no complications <Janiya Bryan - Last Filed: 10/29/23 21:49> Medical Decision Making <Horacio Vigil - Last Filed: 10/28/23 14:25> - Lab Data Result diagrams: 10/28/23 14:23 10/29/23 00:13 <Janiya Bryan - Last Filed: 10/29/23 21:49> - Medical Decision Making I completed the quick note portion of this chart signed Horacio Vigil PA-C (Horacio Vigil) Was pt. sent in by a medical professional or institution ([facility], [facility], urgent care, hospital, or alf...) When possible be specific @ -No Did you speak to anyone other than the patient for history (EMS, parent, family, police, friend...)? What history was obtained from this source @ -No Did you review nursing and triage notes (agree or disagree)? Why? @ -I reviewed and agree with nursing and triage notes Were old charts reviewed (outside hosp., previous admission, EMS record, old EKG, old radiological studies, urgent care reports/EKG's, alf records)? Report findings @ -No old charts were reviewed Differential Diagnosis (chest pain, altered mental status, abdominal pain women, abdominal pain men, vaginal bleeding, weakness, fever, dyspnea, syncope, headache, dizziness, GI bleed, back pain, seizure, CVA, palpatations, mental health, musculoskeletal)? @ -Differential Mental Health Depression, anxiety, bipolar, psychosis, schizophrenia, borderline personality, situational depression, adjustment disorder, behavioral disorder, brain tumor, malingering, substance abuse, encephalopathy, medication reaction, dementia, hypothyroidism, degenerative neurologic disorder, lupus.... This is not meant to be all-inclusive list EKG interpreted by me (3pts min.). @ -EKG at 1431 shows sinus rhythm, right bundle branch block rate 61, NE 197, QRS 174, QTQTc [id number] X-rays interpreted by me (1pt min.). @ -None done CT interpreted by me (1pt min.). @ -None done U/S interpreted by me (1pt. min.). @ -None done What testing was considered but not performed or refused? (CT, X-rays, U/S, labs)? Why? @ -None What meds were considered but not given or refused? Why? @ -None Did you discuss the management of the patient with other professionals (professionals i.e. , PA, [facility], lab, RT, psych nurse, hospice social worker, apparel sales associate, teacher, corporate ethics officer, rn case management)? Give summary @ -No Was smoking cessation discussed for >3mins.? @ -No Was critical care preformed (if so, how long)? @ -No Were there social determinants of health that impacted care today? How? (Homelessness, low income, unemployed, alcoholism, drug addiction, transportation, low edu. Level, literacy, decrease access to med. care, long term, rehab)? @ -No Was there de-escalation of care discussed even if they declined (Discuss DNR or withdrawal of care, Hospice)? DNR status @ -No What co-morbidities impacted this encounter? (DM, HTN, Smoking, COPD, CAD, Cancer, CVA, ARF, Chemo, Hep., AIDS, mental health diagnosis, sleep apnea, morbid obesity)? @ -None Was patient admitted / discharged? Hospital course, mention meds given and route, prescriptions, significant lab abnormalities, going to OR and other pertinent info. @ -Patient presented to the emergency department for evaluation of overdose and suicide attempt. Patient reports taking 4 10mg Linden and 5 MS contin at 10pm. She also reports cutting her arms and legs with kitchen knife. Patient respirations depressed on my evaluation. Patient provided narcan. Patient more alert after this, breathing improved, and resting comfortably in the room. Patient has multiple abrasions to bilateral arms and legs. She has a larger 4 cm laceration to the left anterior forearm. She also has 2 cm lacerations to bilateral inner thighs. These were cleaned, repaired and dressed. Patient provided 1 L normal saline. Laboratory studies obtained. CBC remarkable for WBC of 10.9; CMP shows a sodium of 131; BUN 22, Cr 1.12; AST 39; salicylates less than 1, acetaminophen less than 10. UA shows trace protein otherwise unremarkable. Urine drug screen positive for opiates and oxycodone. Negative COVID test. Patient was medically cleared and patient pending EPS evaluation. Patient for transfer to geriatric psych facility Undiagnosed new problem with uncertain prognosis? @ -No Drug Therapy requiring intensive monitoring for toxicity (Heparin, Nitro, Insulin, Cardizem)? @ -No Were any procedures done? @ -Laceration repair Diagnosis/symptom? @ -Attempted suicide, depression, laceration Acute, or Chronic, or Acute on Chronic? @ -Acute Uncomplicated (without systemic symptoms) or Complicated (systemic symptoms)? @ -Uncomplicated Side effects of treatment? @ -No Exacerbation, Progression, or Severe Exacerbation? @ -No Poses a threat to life or bodily function? How? (Chest pain, USA, SD, pneumonia, PE, COPD, DKA, ARF, appy, cholecystitis, CVA, Diverticulitis, Homicidal, Suicidal, threat to staff... and all critical care pts) @ -No (Janiya Bryan) - Lab Data Lab Results 10/28/23 10/28/23 10/28/23 Range/Units 14:23 14:23 14:23 WBC 10.9 H (3.8-10.6) k/uL RBC 5.16 (3.80-5.40) m/uL Hgb 15.4 (11.4-16.0) gm/dL Hct 47.2 H (34.0-46.0) % MCV 91.5 (80.0-100.0) fL MCH 29.8 (25.0-35.0) pg MCHC 32.6 (31.0-37.0) g/dL RDW 12.7 (11.5-15.5) % Plt Count 323 (150-450) k/uL MPV 7.7 Neutrophils % 81 % Lymphocytes % 11 % Monocytes % 5 % Eosinophils % 2 % Basophils % 0 % Neutrophils # 8.7 H (1.3-7.7) k/uL Lymphocytes # 1.2 (1.0-4.8) k/uL Monocytes # 0.6 (0-1.0) k/uL Eosinophils # 0.2 (0-0.7) k/uL Basophils # 0.0 (0-0.2) k/uL PT (10.0-12.5) sec INR (<1.2) APTT (22.0-30.0) sec Sodium 131 L (137-145) mmol/L Potassium 4.3 (3.5-5.1) mmol/L Chloride 103 (98-107) mmol/L Carbon Dioxide 19 L (22-30) mmol/L Anion Gap 9 mmol/L BUN 22 H (7-17) mg/dL Creatinine 1.12 H (0.52-1.04) mg/dL Est GFR (CKD-EPI)AfAm 58 (>60 ml/min/1.73 sqM) Est GFR (CKD-EPI)NonAf 50 (>60 ml/min/1.73 sqM) Glucose 104 H (74-99) mg/dL Calcium 10.0 (8.4-10.2) mg/dL Magnesium 1.6 (1.6-2.3) mg/dL Total Bilirubin 0.7 (0.2-1.3) mg/dL AST 39 H (14-36) U/L ALT 27 (4-34) U/L Alkaline Phosphatase 24 L (38-126) U/L Total Protein 7.3 (6.3-8.2) g/dL Albumin 4.5 (3.5-5.0) g/dL Urine Color Urine Appearance (Clear) Urine pH (5.0-8.0) Ur Specific [place] (1.001-1.035) Urine Protein (Negative) Urine Glucose (UA) (Negative) Urine Ketones (Negative) Urine Blood (Negative) Urine Nitrite (Negative) Urine Bilirubin (Negative) Urine Urobilinogen (<2.0) mg/dL Ur Leukocyte Esterase (Negative) Salicylates <1.0 mg/dL Urine Opiates Screen (NotDetected) Ur Oxycodone Screen (NotDetected) Urine Methadone Screen (NotDetected) Acetaminophen <10.0 ug/mL Ur Barbiturates Screen (NotDetected) U Tricyclic Antidepress (NotDetected) Ur Phencyclidine Scrn (NotDetected) Ur Amphetamines Screen (NotDetected) U Methamphetamines Scrn (NotDetected) U Benzodiazepines Scrn (NotDetected) Urine Cocaine Screen (NotDetected) U Marijuana (THC) Screen (NotDetected) Serum Alcohol mg/dL SARS-CoV-2 (PCR) Not Detected (Not Detectd) 10/28/23 10/28/23 10/28/23 Range/Units 15:00 18:56 18:56 WBC (3.8-10.6) k/uL RBC (3.80-5.40) m/uL Hgb (11.4-16.0) gm/dL Hct (34.0-46.0) % MCV (80.0-100.0) fL MCH (25.0-35.0) pg MCHC (31.0-37.0) g/dL RDW (11.5-15.5) % Plt Count (150-450) k/uL MPV Neutrophils % % Lymphocytes % % Monocytes % % Eosinophils % % Basophils % % Neutrophils # (1.3-7.7) k/uL Lymphocytes # (1.0-4.8) k/uL Monocytes # (0-1.0) k/uL Eosinophils # (0-0.7) k/uL Basophils # (0-0.2) k/uL PT 11.5 (10.0-12.5) sec INR 1.1 (<1.2) APTT 21.7 L (22.0-30.0) sec Sodium (137-145) mmol/L Potassium (3.5-5.1) mmol/L Chloride (98-107) mmol/L Carbon Dioxide (22-30) mmol/L Anion Gap mmol/L BUN (7-17) mg/dL Creatinine (0.52-1.04) mg/dL Est GFR (CKD-EPI)AfAm (>60 ml/min/1.73 sqM) Est GFR (CKD-EPI)NonAf (>60 ml/min/1.73 sqM) Glucose (74-99) mg/dL Calcium (8.4-10.2) mg/dL Magnesium (1.6-2.3) mg/dL Total Bilirubin (0.2-1.3) mg/dL AST (14-36) U/L ALT (4-34) U/L Alkaline Phosphatase (38-126) U/L Total Protein (6.3-8.2) g/dL Albumin (3.5-5.0) g/dL Urine Color Yellow Urine Appearance Clear (Clear) Urine pH 5.5 (5.0-8.0) Ur Specific [place] 1.027 (1.001-1.035) Urine Protein Trace H (Negative) Urine Glucose (UA) Negative (Negative) Urine Ketones Negative (Negative) Urine Blood Negative (Negative) Urine Nitrite Negative (Negative) Urine Bilirubin Negative (Negative) Urine Urobilinogen <2.0 (<2.0) mg/dL Ur Leukocyte Esterase Negative (Negative) Salicylates mg/dL Urine Opiates Screen Detected H (NotDetected) Ur Oxycodone Screen Detected H (NotDetected) Urine Methadone Screen Not Detected (NotDetected) Acetaminophen ug/mL Ur Barbiturates Screen Not Detected (NotDetected) U Tricyclic Antidepress Not Detected (NotDetected) Ur Phencyclidine Scrn Not Detected (NotDetected) Ur Amphetamines Screen Not Detected (NotDetected) U Methamphetamines Scrn Not Detected (NotDetected) U Benzodiazepines Scrn Not Detected (NotDetected) Urine Cocaine Screen Not Detected (NotDetected) U Marijuana (THC) Screen Not Detected (NotDetected) Serum Alcohol <10 mg/dL SARS-CoV-2 (PCR) (Not Detectd) 10/29/23 Range/Units 00:13 WBC (3.8-10.6) k/uL RBC (3.80-5.40) m/uL Hgb (11.4-16.0) gm/dL Hct (34.0-46.0) % MCV (80.0-100.0) fL MCH (25.0-35.0) pg MCHC (31.0-37.0) g/dL RDW (11.5-15.5) % Plt Count (150-450) k/uL MPV Neutrophils % % Lymphocytes % % Monocytes % % Eosinophils % % Basophils % % Neutrophils # (1.3-7.7) k/uL Lymphocytes # (1.0-4.8) k/uL Monocytes # (0-1.0) k/uL Eosinophils # (0-0.7) k/uL Basophils # (0-0.2) k/uL PT (10.0-12.5) sec INR (<1.2) APTT (22.0-30.0) sec Sodium 133 L (137-145) mmol/L Potassium 5.0 (3.5-5.1) mmol/L Chloride 103 (98-107) mmol/L Carbon Dioxide 16 L (22-30) mmol/L Anion Gap 14 mmol/L BUN 24 H (7-17) mg/dL Creatinine 1.17 H (0.52-1.04) mg/dL Est GFR (CKD-EPI)AfAm 55 (>60 ml/min/1.73 sqM) Est GFR (CKD-EPI)NonAf 47 (>60 ml/min/1.73 sqM) Glucose 93 (74-99) mg/dL Calcium 9.6 (8.4-10.2) mg/dL Magnesium (1.6-2.3) mg/dL Total Bilirubin 0.7 (0.2-1.3) mg/dL AST 36 (14-36) U/L ALT 27 (4-34) U/L Alkaline Phosphatase 35 L (38-126) U/L Total Protein 7.1 (6.3-8.2) g/dL Albumin 4.4 (3.5-5.0) g/dL Urine Color Urine Appearance (Clear) Urine pH (5.0-8.0) Ur Specific [place] (1.001-1.035) Urine Protein (Negative) Urine Glucose (UA) (Negative) Urine Ketones (Negative) Urine Blood (Negative) Urine Nitrite (Negative) Urine Bilirubin (Negative) Urine Urobilinogen (<2.0) mg/dL Ur Leukocyte Esterase (Negative) Salicylates mg/dL Urine Opiates Screen (NotDetected) Ur Oxycodone Screen (NotDetected) Urine Methadone Screen (NotDetected) Acetaminophen <10.0 ug/mL Ur Barbiturates Screen (NotDetected) U Tricyclic Antidepress (NotDetected) Ur Phencyclidine Scrn (NotDetected) Ur Amphetamines Screen (NotDetected) U Methamphetamines Scrn (NotDetected) U Benzodiazepines Scrn (NotDetected) Urine Cocaine Screen (NotDetected) U Marijuana (THC) Screen (NotDetected) Serum Alcohol mg/dL SARS-CoV-2 (PCR) (Not Detectd) Disposition <Horacio Vigil - Last Filed: 10/28/23 14:25> Is patient prescribed a controlled substance at d/c from ED?: No <Janiya Bryan - Last Filed: 10/29/23 21:49> Clinical Impression: Attempted suicide, Depression Disposition: TRANSFER TO PSYCH HOSP/UNIT Condition: Stable Referrals: Erwin Rowland MD [Primary Care Provider] - 1-2 days
[2023-10-28] MEDS: DIPH,PERTUS(ACELL)TETVAC-LF 0.5 ML VIAL IM ONE (14:35)
[2023-10-28] MEDS: NALOXONE 0.4 MG/ML 1 ML VIAL IVP STA (14:36)
[2023-10-28 14:41] LABS: Basophils % (A) 0 %; Eosinophils # (A) 0.2 k/uL (0-0.7); Eosinophils % (A) 2 %; HCT 47.2 % (34.0-46.0); HGB 15.4 gm/dL (11.4-16.0); Lymphocytes # (A) 1.2 k/uL (1.0-4.8); Lymphocytes % (A) 11 %; MCH 29.8 pg (25.0-35.0); MCHC 32.6 g/dL (31.0-37.0); MCV 91.5 fL (80.0-100.0); Mean Platelet Volume 7.7; Monocytes # (A) 0.6 k/uL (0-1.0); Monocytes % (A) 5 %; Neutrophils # (A) 8.7 k/uL (1.3-7.7); Neutrophils % (A) 81 %; Platelet Count 323 k/uL (150-450); RBC 5.16 m/uL (3.80-5.40); RDW 12.7 % (11.5-15.5); WBC 10.9 k/uL (3.8-10.6)
[2023-10-28 15:01] LABS: ALT 27 U/L (4-34); Acetaminophen <10.0 ug/mL; African American GFR (CKD) 58 (>60 ml/min/1.73 sqM); Albumin 4.5 g/dL (3.5-5.0); Anion Gap 9 mmol/L; Blood Urea Nitrogen 22 mg/dL (7-17); Carbon Dioxide 19 mmol/L (22-30); Chloride 103 mmol/L (98-107); Glucose 104 mg/dL (74-99); Non-African American GFR(CKD) 50 (>60 ml/min/1.73 sqM); Salicylate <1.0 mg/dL; Sodium 131 mmol/L (137-145); Total Bilirubin 0.7 mg/dL (0.2-1.3); Total Protein 7.3 g/dL (6.3-8.2)
[2023-10-28 15:05] LABS: AST 39 U/L (14-36); Alkaline Phosphatase 24 U/L (38-126); Magnesium 1.6 mg/dL (1.6-2.3); Potassium 4.3 mmol/L (3.5-5.1)
[2023-10-28 15:23] LABS: Appearance,Urine Clear (Clear); Bilirubin,Urine Negative (Negative); Blood,Urine Negative (Negative); Color,Urine Yellow; Glucose,Urine (UA) Negative (Negative); Ketones,Urine Negative (Negative); Leukocyte Esterase,Urine Negative (Negative); Nitrite,Urine Negative (Negative); PH, Urine 5.5 (5.0-8.0); Protein,Urine Trace (Negative); Specific Gravity,Urine 1.027 (1.001-1.035); Urobilinogen,Urine <2.0 mg/dL (<2.0)
[2023-10-28 15:38] LABS: Amphetamine Screen,Urine Not Detected (NotDetected); Barbiturate Screen,Urine Not Detected (NotDetected); Benzodiazepines Screen,Urine Not Detected (NotDetected); Cocaine Screen,Urine Not Detected (NotDetected); Methadone Screen, Urine Not Detected (NotDetected); Opiate Screen,Urine Detected (NotDetected); Oxycodone Screen, Urine Detected (NotDetected); Phencyclidine Screen,Urine Not Detected (NotDetected); Tricyclic Antidepressant,Urine Not Detected (NotDetected); Urn Cannabinoid Scrn Not Detected (NotDetected)
[2023-10-28] MEDS: SODIUM CHLORIDE 0.9% 1,000 ML IV ONE (15:38)
[2023-10-28] MEDS: LIDOCAINE 1% INJ 10MG/ML (20 ML MDV) SQ ONE (16:36)
[2023-10-28 19:24] LABS: INR 1.1 (<1.2); Prothrombin Time 11.5 sec (10.0-12.5)
[2023-10-28 19:51] LABS: Partial Thromboplastin Time 21.7 sec (22.0-30.0)
[2023-10-29] MEDS: amLODIPine 2.5 MG TAB PO SCH (00:28)
[2023-10-29] MEDS: AMIODARONE 200 MG TAB PO SCH (00:28)
[2023-10-29] MEDS: METOPROLOL SUCCINATE (ER) 25 MG TAB.ER.24H PO SCH (00:28)
[2023-10-29] MEDS: LOSARTAN 25 MG TAB PO SCH (00:29)
[2023-10-29 00:52] LABS: Carbon Dioxide 16 mmol/L (22-30); Chloride 103 mmol/L (98-107); Glucose 93 mg/dL (74-99); Sodium 133 mmol/L (137-145)
[2023-10-29 00:53] LABS: ALT 27 U/L (4-34); AST 36 U/L (14-36); Acetaminophen <10.0 ug/mL; African American GFR (CKD) 55 (>60 ml/min/1.73 sqM); Albumin 4.4 g/dL (3.5-5.0); Alkaline Phosphatase 35 U/L (38-126); Anion Gap 14 mmol/L; Blood Urea Nitrogen 24 mg/dL (7-17); Calcium 9.6 mg/dL (8.4-10.2); Non-African American GFR(CKD) 47 (>60 ml/min/1.73 sqM); Total Bilirubin 0.7 mg/dL (0.2-1.3); Total Protein 7.1 g/dL (6.3-8.2)
[2023-10-29] MEDS: cloNIDine HCL 0.1 MG TAB PO STA (05:20)
[2023-10-29 06:09] VITALS: TEMP 98.5
[2023-10-29] MEDS: amLODIPine 5 MG TAB PO STA (06:24)
[2023-10-29] MEDS: SODIUM CHLORIDE 0.9% 1,000 ML IV ONE (06:24)
[2023-10-29] MEDS: ASPIRIN 81 MG PO SCH (07:34)
[2023-10-29] MEDS: RIVAROXABAN 10 MG TAB PO SCH (18:48)
[2023-10-29 20:02] VITALS: BP 146/86; PULSE 86; RESP 16
[2023-10-29] MEDS ORDERED: ATORVASTATIN 80 MG TAB PO SCH (21:00)
== END 2023-10-29 19:54 ==
LOC: EC 14:17
DX: S51.812A Laceration without foreign body of left forearm, initial encounter (principal); S71.112A Laceration without foreign body, left thigh, initial encounter; S71.111A Laceration without foreign body, right thigh, initial encounter; S50.811A Abrasion of right forearm, initial encounter; T39.1X2A Poisoning by 4-Aminophenol derivatives, intentional self-harm, initial encounter; F32.A Depression, unspecified; I45.10 Unspecified right bundle-branch block; I12.9 Hypertensive chronic kidney disease with stage 1 through stage 4 chronic kidney disease, or unspecified chronic kidney disease; N18.30 Chronic kidney disease, stage 3 unspecified; J45.909 Unspecified asthma, uncomplicated; I25.10 Atherosclerotic heart disease of native coronary artery without angina pectoris; E78.5 Hyperlipidemia, unspecified; Z20.822 Contact with and (suspected) exposure to COVID-19; Z79.82 Long term (current) use of aspirin; Z79.01 Long term (current) use of anticoagulants; Z79.899 Other long term (current) drug therapy; Z88.2 Allergy status to sulfonamides; Z88.1 Allergy status to other antibiotic agents; Z91.048 Other nonmedicinal substance allergy status; Z23 Encounter for immunization; Z86.711 Personal history of pulmonary embolism; Z95.1 Presence of aortocoronary bypass graft; X78.1XXA Intentional self-harm by knife, initial encounter
CPT/HCPCS: 99285; 96374; 96361 ×4; 90471; 82075; 51798; 36415 ×2; 80053 ×2; 83735; 85025; 85610; 85730; 81003; 80306; 80143 ×2; 87635; 80179; 90715; 12004; G0480; J2310; J2001; 80320